=== PATIENT | male | born 1975 | race Caucasian/White ===

== ENCOUNTER → 2018-05-15 | Outpatient (CLI) | payer SELFPAY ==
--- NOTE | 2018-05-15 17:30 | REP ---
MRI right ankle without contrast: History: Ligament sprain. Rule out occult fracture or OCD lesion. No comparison images. Technique: Axial, coronal and sagittal imaging planes are utilized. T1 and T2-weighted scans were obtained with and without fat saturation. MRI findings: Please obtain comparison CT and x-ray images from [place]. There is a irregularly shaped somewhat lobulated cystic area in the calcaneus extending downward from the sinus tarsi at the talocalcaneal articulation. There is no evidence of tarsal coalition. The calcaneal cyst measures up to 18 mm in greatest diameter. Cortical and medullary bone signal intensity are otherwise normal in the calcaneus. There are scattered punctate sub cortical and subarticular T2 hyperintense foci consistent with tiny microcysts on either side of the ankle articulation involving the tibial plafond and talar dome. There are some of these cysts on either side of the subtalar joint as well. No barb osteochondral defect lesion is seen. These tiny microcystic changes could be the result of arthropathy or related to rapid osteoporosis. There is no evidence of fracture or stress injury. A small quantity of ankle joint fluid is seen. The Achilles tendon is normal. Plantar fascia are smooth. The anterior talofibular ligament appears intact. Anterior inferior tibiofibular ligament appears intact. The posterior talofibular and calcaneofibular ligaments have an intact appearance. Deltoid ligamentous complex is unremarkable. No ligament disruption is seen. There is no evidence of extensor tendinopathy. Medially, the tibialis posterior, flexor digitorum, and flexor hallicis longus tendons have an intact appearance. Laterally peroneus longus and brevis tendons are intact. No soft tissue mass or periarticular cyst is appreciated. Impression: Cystic changes in the mid calcaneus associated with the subtalar joint at the level of the sinus tarsi. This may imply arthropathy. Similarly, there are tiny microcystic changes on either side of the ankle joint and subtalar joints in the tibial plafond and talus. Question diffuse or rapid osteoporosis versus arthropathy. No ligament or tendon disruption seen. Electronically Signed by Nilo Hubbard MD 05/15/2018 08:37 P
== END ==
LOC: M RAD 12:19
PROVIDERS: ATTEND Orthopaedic Surgery
DX: S93.401A Sprain of unspecified ligament of right ankle, initial encounter (principal); X58.XXXA Exposure to other specified factors, initial encounter; Y92.89 Other specified places as the place of occurrence of the external cause; Y93.9 Activity, unspecified; Y99.9 Unspecified external cause status